=== PATIENT | male | born 1990 | race Caucasian/White ===

== ENCOUNTER 2018-08-19 09:53 | Day surgery (SDC) | payer OTHER ==
[~2018-08-19 09:53] MED LIST: ACETAMINOPHEN 0 MG/0 ML RTUPB IV ONE; CEFAZOLIN 2 GM/D5W RTU 2 GM/50 ML RTUPB IV PRN; DEXAMETHASONE SOD PHOSPHATE INJ 4 MG/1 ML VIAL ONE; FENTANYL CITRATE INJ/PF 100 MCG/2 ML AMPUL ONE; LIDOCAINE 0.5% INJ-PF (5 MG/ML) 50 ML SDV SUBCUT PRN; MIDAZOLAM 2 MG/2 ML INJ ONE; ONDANSETRON HCL INJ/PF 4 MG/2 ML SDV ONE; PROPOFOL INJ 200 MG/20 ML VIAL IV ONE; RINGERS SOLUTION,LACTATED 1,000 ML IV PRN
[2018-08-19] MEDS ORDERED: SUCCINYLCHOLINE CHLORIDE INJ 200 MG/10 ML VIAL ONE (10:58)
[2018-08-19] MEDS ORDERED: LIDOCAINE 1% INJ-PF (10 MG/ML) 30 ML SDV ONE (13:19)
[2018-08-19] MEDS ORDERED: HYDROMORPHONE HCL INJ/PF 2 MG/ML AMPULE ONE (13:22)
[2018-08-19] MEDS ORDERED: ONDANSETRON HCL INJ/PF 4 MG/2 ML SDV ONE (13:23)
[2018-08-19] MEDS ORDERED: PROPOFOL INJ 200 MG/20 ML VIAL IV ONE (13:23)
[2018-08-19] MEDS ORDERED: MIDAZOLAM 2 MG/2 ML INJ ONE ×2 (13:23→13:32)
[2018-08-19] MEDS ORDERED: FENTANYL CITRATE INJ/PF 100 MCG/2 ML AMPUL ONE (13:23)
[2018-08-19] MEDS: BUPIVACAINE HCL 0.5 % INJ/PF 30 ML SDV ONE ×2 (13:27→14:51)
[2018-08-19] MEDS ORDERED: CEFAZOLIN 2 GM/D5W RTU 2 GM/50 ML RTUPB IV ONE (13:31)
[2018-08-19] MEDS ORDERED: ALBUTEROL SULFATE 0.083% NEB 2.5 MG/3 ML AMPUL NEB ONE (13:33)
[2018-08-19] MEDS ORDERED: DIPHENHYDRAMINE HCL 50 MG/ML VIAL IV PRN (15:02)
[2018-08-19] MEDS ORDERED: MORPHINE SULFATE 10 MG/ML INJ IV PRN ×2 (15:02→15:54)
[2018-08-19] MEDS ORDERED: MEPERIDINE HCL/PF INJ 25 MG/1 ML DISP.SYRIN IV PRN (15:02)
[2018-08-19] MEDS ORDERED: FENTANYL CITRATE INJ/PF 100 MCG/2 ML AMPUL IV PRN ×3 (15:02)
[2018-08-19] MEDS ORDERED: PROMETHAZINE HCL INJ 25 MG/1 ML VIAL IV PRN ×2 (15:02)
[2018-08-19] MEDS ORDERED: ACETAMINOPHEN 1,000 MG/100 ML RTUPB IV ONE (15:52)
[2018-08-19] MEDS: FENTANYL CITRATE INJ/PF 100 MCG/2 ML AMPUL ONE ×2 (15:52→15:55)
[2018-08-19] MEDS ORDERED: OXYCODONE-ACETAMINOPHEN 5-325 MG TABLET PO PRN (15:54)
[2018-08-19] MEDS ORDERED: ONDANSETRON HCL INJ/PF 4 MG/2 ML SDV IV PRN (15:54)
--- NOTE | 2018-08-19 16:02 | Discharge Summary ---
Discharge Summary (SDC) - Discharge Final Diagnosis: Right wrist TFCC tear Date of Surgery: 08/19/18 Discharge Date: 08/19/18 Condition: Good Treatment or Instructions: Schedule Follow Up w/ Dr. Rhett Wilson @ [facility] to be seen in 10-14 days or as scheduled [place]: [place]: [place]: Ice and elevate Keep splint clean/dry/intact. If your fingers become numb please unwrap the Carlos wrap but leave the splint in place, if the sensation does not return within 30 minutes please return to the emergency department. May begin finger range of motion attempting to make full fist. Please use ibuprofen (Motrin or Advil) 600-800 mg every 8 hours as needed for pain or fever DO NOT TAKE w/ TORADOL may use once TORADOL complete. You may also use acetaminophen (Tylenol) 1000 mg every 4-6 hours as needed for pain or fever. Please be aware that many medications contain acetaminophen, do not exceed a total of 1000 mg of acetaminophen every 6 hours. If ibuprofen and acetaminophen are not sufficient for your pain you may take the Percocet/[place]. Please be aware that the Percocet/[place] does contain Tylenol. Stool softener of choice when on pain medication. Prescriptions: Ketorolac Tromethamine [Toradol 10 mg Tablet] 10 mg PO Q8HP PRN #12 tablet PRN Reason: Oxycodone HCl/Acetaminophen [Percocet 5-325 mg Tablet] 1 tab PO Q6 PRN #25 tab PRN Reason: Discharge Diet: As Tolerated Discharge Activity: No Lifting Over 10 Pounds, No Lifting/Push/Pulling Report the Following to Your Physician Immediately: Fever over 101 Degrees, Unusual Bleeding, Redness, Swelling, Warmth, Increased Soreness
--- NOTE | 2018-08-19 16:02 | Operative Report ---
Operative Report DATE OF SURGERY: 08/19/18 PREOPERATIVE DIAGNOSIS: Right wrist TFCC tear POSTOPERATIVE DIAGNOSIS: Right wrist TFCC tear OPERATION: Right wrist arthroscopy with arthroscopic TFCC repair SURGEON: RENAN WINTERS ANESTHESIA: GA COMPLICATIONS: None ESTIMATED BLOOD LOSS: Minimal PROCEDURE: Indication for above procedure: 28-year-old male who sustained a injury to his right wrist. Patient was treated conservatively with immobilization, therapy and anti-inflammatories. MRI and CT scan demonstrated healed fracture of the proximal scaphoid without evidence of AVN however patient continued to have discomfort along the ulnar aspect of the wrist. 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 After attempting conservative management including the above-mentioned and injections joint decision was made to proceed with operative treatment. Procedure In Detail: Patient was seen and evaluated in the preoperative holding area. The RIGHT upper extremity was initialized and marked. Patient received 2g of Ancef IV for bacterial prophylaxis. Patient was taken back to the operative room where transferred to the operative table and placed under general anesthesia. Once they were adequately anesthetized a nonsterile tourniquet was placed on the upper extremity. A surgical team debriefing was performed ensuring all instrumentation was available, the surgical procedure was discussed with possible concerns reviewed. The upper extremity was prepped with chlorhexidine and alcohol and draped in a sterile fashion. A timeout was done identifying correct patient, procedure and extremity everyone in attendance agree with this and verbalized no concerns. Patient was placed in the Acumed wrist distractor the extremity was exsanguinated the tourniquet was inflated to 250 mmHg. A 3-4 portal was established the arthroscope introduced into the radiocarpal joint. Via triangulation a 4-5 portal was then established. Diagnostic arthroscopy demonstrated no evidence of degenerative changes. Intact scapholunate and lunotriquetral ligaments along the membranous portion. No evidence of chondral involvement of the lunate. Arthroscopic probe was introduced there was a defect of the TFCC along its ulnar border with patulous and decreased trampoline effect upon palpation which coincides with patient's clinical examination of DRUJ instability. Arthroscopic shaver was then introduced and the edges of the tear debrided. Given patient's DRUJ stability decision was made to proceed with TFCC repair. Arthroscope was then placed into the 4-5 portal a Watson and nephew Fast Fix TFCC repair anchor was then opened. It was introduced into the 3-4 portal the cannula was then removed. The needle was placed through the central aspect of the TFCC via palpation I ensured the needle was within the safe zone of the FCU/ ECU. The anchor was then engaged. The needle slowly backed out and then placed into the capsule verbally once again palpation performed along the FCU/ ECU to ensure safe placement of the anchor. Once the second anchor was engaged the knot was tightened and then cut. However there is still remaining defect along the ulnar border. Thus a second Fast Fix TFCC anchor was placed similar to the previous technique once again obtaining fixation within the central portion of the TFCC the anchor was engaged while palpating the ECU/FCU. I then placed the second anchor within the ulnar capsule once again palpating the safe interval to ensure appropriate placement. The anchor was then tightened and cut. Patient's DRUJ instability significantly improved after repair. Any remaining debris was then excised with a full-radius resector. Also sections were debrided with the ArthroCare wand to a stable base. A midcarpal radial portal was established and the arthroscope introduced. Diagnostic arthroscopy demonstrated no evidence of scapholunate or lunotriquetral disruption. No evidence of chondral damage. Tourniquet was deflated. Patient had good peripheral perfusion. Skin incisions were closed with interrupted 3-0 nylon suture. 20 cc of 0.5% bupivacaine without epinephrine was injected for postoperative pain control. Wound was dressed Xeroform 4 x 4's and patient was placed in a sugar tong splint maintaining wrist at supination. Sponge counts, instrument counts, needle counts counts were correct. Patient was then awoken from anesthesia. Transferred from the operating room table to the operating room stretcher. There was no intraoperative complications patient tolerated procedure well stable to PACU. Postoperative plan: Patient will follow-up in 2 weeks at which point he will be transition to a long -arm cast in supination. He would then be set up for occupational therapy and fitted for a [place] splint where he will begin wrist and elbow range of motion at 6 weeks we will begin pronation and supination.
[2018-08-19] MEDS ORDERED: OXYCODONE-ACETAMINOPHEN 5-325 MG TABLET ONE (17:03)
[2018-08-19 18:42] VITALS: BP 127/83
== END 2018-08-19 18:05 | disposition home or self-care (01) ==
LOC: OROUT 09:53
PROVIDERS: ATTEND Orthopaedic Surgery
DX: S63.591A Other specified sprain of right wrist, initial encounter (principal); S62.034A Nondisplaced fracture of proximal third of navicular [scaphoid] bone of right wrist, initial encounter for closed fracture; W19.XXXA Unspecified fall, initial encounter; F17.210 Nicotine dependence, cigarettes, uncomplicated; F90.9 Attention-deficit hyperactivity disorder, unspecified type
CPT/HCPCS: 29846; J2250; J3490; J3010; J1170; J0330; J2405; J2704; J0690; J0131; 1830; J1100